=== PATIENT | male | born 1990 | race African-American/Black ===

== ENCOUNTER 2017-04-20 17:41 | Emergency (ER) | payer MEDICAID ==
[~2017-04-20] VITALS: Ht 180.3 cm; Wt 87.0 kg
[2017-04-20] MEDS ORDERED: IBUPROFEN 600MG TABLET PO ONE (22:30)
[2017-04-20 22:43] VITALS: BP 120/70
== END 2017-04-20 23:31 | disposition home or self-care (01) ==
LOC: ER 21:34
DX: H92.02 Otalgia, left ear (principal); F12.90 Cannabis use, unspecified, uncomplicated
CPT/HCPCS: 99283

== ENCOUNTER 2024-05-07 15:57 | Emergency (ER) | payer MEDICAID ==
[~2024-05-07] VITALS: Ht 185.4 cm; Wt 77.1 kg
[2024-05-07 16:22] VITALS: BP 117/78; PULSE 63; RESP 16; TEMP 98.3; O2SAT 99
[2024-05-07] MEDS: KETOROLAC 15MG/ML VIAL IM ONE (18:55)
[2024-05-07] MEDS: LIDOCAINE 5% PATCH TOP SCH (18:55)
[2024-05-07] MEDS ORDERED: NAPR-1176 MT (19:39)
[2024-05-07] MEDS ORDERED: CYCL5TAB3 MT (19:39)
[2024-05-07] MEDS ORDERED: LIDO700A15 TP (19:39)
== END 2024-05-07 20:15 | disposition home or self-care (01) ==
LOC: ER 15:57
DX: S13.4XXA Sprain of ligaments of cervical spine, initial encounter (principal); F12.90 Cannabis use, unspecified, uncomplicated; X58.XXXA Exposure to other specified factors, initial encounter; Y93.89 Activity, other specified; Y92.89 Other specified places as the place of occurrence of the external cause; Y99.8 Other external cause status
CPT/HCPCS: 96372; 99283; J1885; Z7610